=== PATIENT | male | born 1955 | race Caucasian/White ===

== ENCOUNTER 2022-01-22 16:05 | Emergency (ER) | payer MEDICARE ==
--- NOTE | 2022-01-22 16:10 | ERPHSYRPT ---
- History of Present Illness Time Seen by Provider: 01/22/22 16:09 Source: patient Exam Limitations: no limitations Physician History: This and is obese 67-year-old white male patient of Dr. Hunt who is had Covid symptoms for 2 weeks and he took a Covid test which was positive. This is an [id number] test. Patient states his symptoms have been persistent and therefore chest x-ray was performed yesterday which was consistent with COVID-19 pneumonia. His shortness of breath has not improved. Patient was seen at Dr. Hunt's office yesterday a series of blood tests were performed. Since his symptoms are not improving, patient was told to come to the emergency department for evaluation and management. Patient denies chest pain. He has no abdominal pain. He has no nausea vomiting or diarrhea. Patient states that he is allergic to prednisone and he does not know if he can take any other kind of steroids. Patient is a former smoker and has a history of COPD Timing/Duration: week(s) (2), intermittent, worse Cough Quality/Degree: mild, dry cough Possible Cause: occasional episodes Modifying Factors: Improves With: coughing, oxygen Associated Symptoms: cough, shortness of breath Allergies/Adverse Reactions: codeine Allergy (Severe, Verified 01/22/22 16:21) Tightness of Throat fentanyl Allergy (Severe, Verified 01/22/22 16:21) Tightness of Throat itching,heart tachy prednisone Allergy (Severe, Verified 01/22/22 16:21) Tightness of Throat itching metaxalone [From Skelaxin] Allergy (Intermediate, Verified 01/22/22 16:21) agitation meloxicam Allergy (Mild, Verified 01/22/22 16:21) agitation methylprednisolone Allergy (Verified 01/22/22 16:21) Tightness of Throat swelling carisoprodol Adverse Reaction (Intermediate, Verified 01/22/22 16:21) agitation gabapentin [From Neurontin] Adverse Reaction (Intermediate, Verified 01/22/22 16:21) Nausea nervous ibuprofen Adverse Reaction (Intermediate, Verified 01/22/22 16:21) cyclobenzaprine Adverse Reaction (Mild, Verified 01/22/22 16:21) Sulfa (Sulfonamide Antibiotics) Adverse Reaction (Unknown, Verified 01/22/22 16:21) states as a child,mother told him he had sores Home Medications: Lansoprazole [Prevacid] 15 mg PO DAILY 02/14/14 [History] Fluticasone Propionate [Flonase] 16 gm NS DAILY PRN 02/15/14 [History] Acetaminophen [Tylenol Extra Strength] 2 tab PO DAILY 09/07/18 [History] Albuterol 8 gm Mdi Hfa [Ventolin Hfa MDI] 2 puff IN Q4H PRN 01/22/22 [History] Hx Influenza Vaccination/Date Given: No Hx Pneumococcal Vaccination/Date Given: No Travel Risk - International Travel Have you traveled outside of the country in past 3 weeks: No - Coronavirus Screening Are you exhibiting any of the following symptoms?: Yes Symptoms: Cough: New Onset, Shortness of Breath Close contact with a COVID-19 positive Pt in past 14-21 Days: No - Review of Systems Constitutional: Weakness Eyes: No Symptoms Ears, Nose, & Throat: No Symptoms Respiratory: Cough, Dyspnea Cardiac: No Symptoms, No Chest Pain Abdominal/Gastrointestinal: No Symptoms Genitourinary Symptoms: No Symptoms Musculoskeletal: No Symptoms Skin: No Symptoms Neurological: No Symptoms Psychological: No Symptoms Endocrine: Excessive Sweating Hematologic/Lymphatic: No Symptoms Immunological/Allergic: No Symptoms All Other Systems: Reviewed and Negative - Past Medical History Pertinent Past Medical History: Yes Neurological History: No Pertinent History ENT History: No Pertinent History Cardiac History: Hypertension Respiratory History: COPD Endocrine Medical History: No Pertinent History Musculoskeletal History: Arthritis GI Medical History: GERD, Ulcer History: No Pertinent History Psycho-Social History: No Pertinent History Male Reproductive Disorders: No Pertinent History Other Medical History: Has Shortness of breath when allergies flare up. Mild COPD. Pt has seen Dr. Carranza in the past. Last appointment was over 2 years ago. Former smoker. - Past Surgical History Past Surgical History: Yes Neuro Surgical History: No Pertinent History Cardiac: No Pertinent History Respiratory: No Pertinent History Gastrointestinal: Cholecystectomy, Hernia Repair Genitourinary: No Pertinent History Musculoskeletal: Other Male Surgical History: No Pertinent History Other Surgical History: right carpal tunnel and decompression of elbox , Amanda and umbilical hernia repair , Nose surgery , skin cancer surgery - Social History Smoking Status: Former smoker Exposure to second hand smoke: Yes (Rarely) Drug Use: none - Nursing Vital Signs Nursing Vital Signs: Initial Vital Signs Temperature 97.9 F 01/22/22 16:10 Pulse Rate 88 01/22/22 16:10 Respiratory Rate 22 01/22/22 16:10 Blood Pressure 170/87 01/22/22 16:10 O2 Sat by Pulse Oximetry 92 L 01/22/22 16:10 Pain Scale Pain Intensity 0 - Physical Exam General Appearance: mild distress (To moderate), alert, obese Eye Exam: PERRL/EOMI, eyes nml inspection Ears, Nose, Throat Exam: normal ENT inspection, dry mucous membranes Neck Exam: normal inspection, non-tender, supple, full range of motion Respiratory Exam: normal breath sounds, lungs clear, airway intact, No chest tenderness, No respiratory distress Cardiovascular Exam: regular rate/rhythm, normal heart sounds, normal peripheral pulses Gastrointestinal/Abdomen Exam: soft, normal bowel sounds, No tenderness Rectal Exam: not done Back Exam: normal inspection, normal range of motion, No CVA tenderness, No vertebral tenderness Extremity Exam: normal inspection, normal range of motion, pelvis stable Neurologic Exam: alert, oriented x 3, cooperative, 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 No changes when compared to EKG performed on 02/28/2015.) Ordered Tests: Active Orders 24 hr Category Date Time Status EKG-ER Only STAT Care 01/22/22 16:10 Active IV Insertion STAT Care 01/22/22 16:10 Active Pulse Oximetry (ED) STAT Care 01/22/22 16:10 Active CHEST 1 VIEW (PORTABLE) Stat Exams 01/22/22 16:11 Completed BLOOD CULTURE Stat Lab 01/22/22 16:20 Received CBC W DIFF Stat Lab 01/22/22 16:20 Completed CMP Stat Lab 01/22/22 16:20 Completed COVID AG-BINAX NOW RAPID TEST Stat Lab 01/22/22 16:28 Completed D-DIMER QUANTITATIVE Stat Lab 01/22/22 16:20 Completed INFLUENZA A+B DMITRY Stat Lab 01/22/22 16:28 Completed Lactic Acid Stat Lab 01/22/22 16:30 Completed Estill Screen Stat Lab 01/22/22 16:20 Completed NT PRO BNP Stat Lab 01/22/22 16:20 Completed TROPONIN Q3H Lab 01/22/22 16:20 Completed TROPONIN Q3H Lab 01/22/22 19:15 Ordered TROPONIN Q3H Lab 01/22/22 22:15 Ordered TROPONIN Q3H Lab 01/23/22 01:15 Ordered TROPONIN Q3H Lab 01/23/22 04:15 Ordered Medication Summary Generic Name Dose Route Start Last Admin Trade Name Freq PRN Reason Stop Dose Admin Sodium Chloride 1,000 mls @ 50 mls/hr 01/22/22 16:15 01/22/22 16:23 Sodium Chloride 0.9% 1000 Ml IV 02/21/22 16:14 50 mls/hr .Q20H MERCEDES Administration Discontinued Medications Generic Name Dose Route Start Last Admin Trade Name Freq PRN Reason Stop Dose Admin Al Hydrox/Mg Hydrox/Simethicone Confirm 01/22/22 17:47 Mag Hydrox/Al Hydrox/Simeth 30 Ml Udcup Administered 01/22/22 17:48 Dose 30 ml .ROUTE .STK-MED ONE Lidocaine HCl Confirm 01/22/22 17:46 Lidocaine Hcl Viscous 1 Ml Administered 01/22/22 17:47 Dose 15 ml .ROUTE .STK-MED ONE Magnesium Hydroxide 45 ml 01/22/22 17:40 01/22/22 17:48 Mag Hydrx/Alum Hyd/Simeth/Lido 45 Ml Bottle PO 01/22/22 17:41 45 ml STAT ONE Administration Lab/Rad Data: Laboratory Result Diagrams 01/22/22 16:20 01/22/22 16:20 Laboratory Results 01/22/22 01/22/22 01/22/22 Range/Units 16:30 16:28 16:28 WBC (4.0-10.5) K/mm3 RBC (4.1-5.6) M/mm3 Hgb (12.5-18.0) gm/dl Hct (42-50) % MCV (78-100) fl MCH (26-32) pg MCHC (32-36) g/dl RDW (11.5-14.0) % Plt Count (150-450) K/mm3 MPV (7.5-11.0) fl Gran % (36.0-66.0) % Eos # (Auto) (0-0.5) Absolute Lymphs (auto) (1.0-4.6) Absolute Monos (auto) (0.0-1.3) Lymphocytes % (24.0-44.0) % Monocytes % (0.0-12.0) % Eosinophils % (0.00-5.0) % Basophils % (0.0-0.4) % Absolute Granulocytes (1.4-6.9) Basophils # (0-0.4) D-Dimer (215-500) ng/mL Sodium (137-145) mmol/L Potassium (3.5-5.1) mmol/L Chloride (98-107) mmol/L Carbon Dioxide (22-30) mmol/L Anion Gap (5-15) MEQ/L BUN (9-20) mg/dL Creatinine (0.66-1.25) mg/dL Estimated GFR ML/MIN Glucose (74-106) mg/dL Lactic Acid 1.0 (0.4-2.0) Calcium (8.4-10.2) mg/dL Total Bilirubin (0.2-1.3) mg/dL AST (17-59) U/L ALT (0-50) U/L Alkaline Phosphatase (38-126) U/L Troponin I (0.000-0.034) ng/mL NT-Pro-B Natriuret Pep (0-900) pg/mL Serum Total Protein (6.3-8.2) g/dL Albumin (3.5-5.0) g/dL Monoscreen (Negative) Influenza Type A Ag NEGATIVE (NEGATIVE) Influenza Type B Ag NEGATIVE (NEGATIVE) SARS-CoV-2 Ag (Rapid) NEGATIVE (NEGATIVE) Group A Strep Antibody NOT DETECTED (NEGATIVE) Slides for Path Review 01/22/22 01/22/22 01/22/22 Range/Units 16:20 16:20 16:20 WBC (4.0-10.5) K/mm3 RBC (4.1-5.6) M/mm3 Hgb (12.5-18.0) gm/dl Hct (42-50) % MCV (78-100) fl MCH (26-32) pg MCHC (32-36) g/dl RDW (11.5-14.0) % Plt Count (150-450) K/mm3 MPV (7.5-11.0) fl Gran % (36.0-66.0) % Eos # (Auto) (0-0.5) Absolute Lymphs (auto) (1.0-4.6) Absolute Monos (auto) (0.0-1.3) Lymphocytes % (24.0-44.0) % Monocytes % (0.0-12.0) % Eosinophils % (0.00-5.0) % Basophils % (0.0-0.4) % Absolute Granulocytes (1.4-6.9) Basophils # (0-0.4) D-Dimer 488 (215-500) ng/mL Sodium (137-145) mmol/L Potassium (3.5-5.1) mmol/L Chloride (98-107) mmol/L Carbon Dioxide (22-30) mmol/L Anion Gap (5-15) MEQ/L BUN (9-20) mg/dL Creatinine (0.66-1.25) mg/dL Estimated GFR ML/MIN Glucose (74-106) mg/dL Lactic Acid (0.4-2.0) Calcium (8.4-10.2) mg/dL Total Bilirubin (0.2-1.3) mg/dL AST (17-59) U/L ALT (0-50) U/L Alkaline Phosphatase (38-126) U/L Troponin I < 0.012 (0.000-0.034) ng/mL NT-Pro-B Natriuret Pep (0-900) pg/mL Serum Total Protein (6.3-8.2) g/dL Albumin (3.5-5.0) g/dL Monoscreen NEGATIVE (Negative) Influenza Type A Ag (NEGATIVE) Influenza Type B Ag (NEGATIVE) SARS-CoV-2 Ag (Rapid) (NEGATIVE) Group A Strep Antibody (NEGATIVE) Slides for Path Review 01/22/22 01/22/22 Range/Units 16:20 16:20 WBC 9.1 (4.0-10.5) K/mm3 RBC 5.34 (4.1-5.6) M/mm3 Hgb 15.7 (12.5-18.0) gm/dl Hct 47.0 (42-50) % MCV 88.0 (78-100) fl MCH 29.4 (26-32) pg MCHC 33.4 (32-36) g/dl RDW 14.3 H (11.5-14.0) % Plt Count 441 (150-450) K/mm3 MPV 9.6 (7.5-11.0) fl Gran % 49.1 (36.0-66.0) % Eos # (Auto) 0.24 (0-0.5) Absolute Lymphs (auto) 2.61 (1.0-4.6) Absolute Monos (auto) 1.76 H (0.0-1.3) Lymphocytes % 28.6 (24.0-44.0) % Monocytes % 19.3 H (0.0-12.0) % Eosinophils % 2.6 (0.00-5.0) % Basophils % 0.4 (0.0-0.4) % Absolute Granulocytes 4.48 (1.4-6.9) Basophils # 0.04 (0-0.4) D-Dimer (215-500) ng/mL Sodium 137 (137-145) mmol/L Potassium 4.3 (3.5-5.1) mmol/L Chloride 104 (98-107) mmol/L Carbon Dioxide 24 (22-30) mmol/L Anion Gap 13.1 (5-15) MEQ/L BUN 11 (9-20) mg/dL Creatinine 0.77 (0.66-1.25) mg/dL Estimated GFR > 60.0 ML/MIN Glucose 98 (74-106) mg/dL Lactic Acid (0.4-2.0) Calcium 8.8 (8.4-10.2) mg/dL Total Bilirubin 1.00 (0.2-1.3) mg/dL AST 38 (17-59) U/L ALT 58 H (0-50) U/L Alkaline Phosphatase 116 (38-126) U/L Troponin I (0.000-0.034) ng/mL NT-Pro-B Natriuret Pep 44.7 (0-900) pg/mL Serum Total Protein 6.5 (6.3-8.2) g/dL Albumin 3.6 (3.5-5.0) g/dL Monoscreen (Negative) Influenza Type A Ag (NEGATIVE) Influenza Type B Ag (NEGATIVE) SARS-CoV-2 Ag (Rapid) (NEGATIVE) Group A Strep Antibody (NEGATIVE) Slides for Path Review YES - Progress Progress: improved Air Movement: fair Progress Note: 01/22/22 18:25 Chest x-ray shows picture consistent with Covid 19 infection. Is not changed from yesterday's chest x-ray. I did speak with Dr. Hunt, the patient's primary care physician. Dr. Hunt I agree that the patient can come in the hospital and receive remdesivir and Lovenox and respiratory treatments and monitoring. However, the patient states that he does not want to come in the hospital. He will sign a refusal of care and treatment. Patient does not recall which steroids he is allergic to and which ones he can take. He will follow up with Dr. Hunt in his office tomorrow to make arrange for follow-up appointment. Patient was told to follow- up in the emergency room if symptoms worsen. Counseled pt/family regarding: lab results, diagnosis, rad results - Departure Departure Disposition: Home Clinical Impression: Shortness of breath, Pneumonia due to COVID-19 virus Condition: Fair Critical Care Time: No Referrals: RANDY HUNT [Primary Care Provider] - Follow up/PCP as directed Additional Instructions: Take your medication as prescribed. Monitor your pulse oximeter. If you become more short of breath return to the emergency department. Call Dr. Hunt's office tomorrow to make arrangements for follow-up appointment.
[2022-01-22] MEDS ORDERED: Sodium Chloride 0.9% 1000 ML 1,000 ML IV SCH (16:15)
[2022-01-22] MEDS ORDERED: Sodium Chloride 0.9% 1000 ML 1,000 ML ONE (16:21)
[2022-01-22 16:45] LABS: Absolute Neutrophil Ct (ANC) 4.48 (1.4-6.9); Basophil (Absolute #) 0.04 (0-0.4); Eosinophil % 2.6 % (0.00-5.0); Eosinophil (Absolute #) 0.24 (0-0.5); Hemoglobin 15.7 gm/dl (12.5-18.0); Lymphocyte (Absolute #) 2.61 (1.0-4.6); Lymphocytes % 28.6 % (24.0-44.0); Mean Corpuscular Hemoglobin 29.4 pg (26-32); Mean Corpuscular Hgb Concent. 33.4 g/dl (32-36); Mean Platelet Volume 9.6 fl (7.5-11.0); Monocyte (Absolute #) 1.76 (0.0-1.3); Monocytes % 19.3 % (0.0-12.0); Neutrophil % 49.1 % (36.0-66.0); Platelet Count 441 K/mm3 (150-450); Red Blood Count 5.34 M/mm3 (4.1-5.6); Red Cell Distribution Width 14.3 % (11.5-14.0); White Blood Count 9.1 K/mm3 (4.0-10.5)
--- NOTE | 2022-01-22 16:54 | XRAY ---
Indication: Dyspnea. Positive Covid 19. Comparison: One day earlier. Portable apical lordotic chest unchanged again demonstrating mild diffuse bilateral peripheral hazy interstitial alveolar opacities without consolidation/large effusion. Heart not enlarged. No new cardiopulmonary abnormalities.
[2022-01-22 17:13] LABS: INFLUENZA A NEGATIVE (NEGATIVE); INFLUENZA B NEGATIVE (NEGATIVE)
[2022-01-22 17:15] LABS: ALBUMIN 3.6 g/dL (3.5-5.0); ALKALINE PHOSPHATASE 116 U/L (38-126); ANION GAP 13.1 MEQ/L (5-15); BLOOD UREA NITROGEN 11 mg/dL (9-20); CHLORIDE 104 mmol/L (98-107); Calcium 8.8 mg/dL (8.4-10.2); Carbon Dioxide 24 mmol/L (22-30); Creatinine 1 0.77 mg/dL (0.66-1.25); EST GLOMERULAR FILTRATION RATE > 60.0 ML/MIN; Glucose 98 mg/dL (74-106); NT PRO BNP 44.7 pg/mL (0-900); Potassium 4.3 mmol/L (3.5-5.1); SGOT/AST 38 U/L (17-59); SGPT/ALT 58 U/L (0-50); SODIUM 137 mmol/L (137-145); Total Protein 6.5 g/dL (6.3-8.2)
[2022-01-22 17:15] LABS: COVID AG -BINAX NOW RAPID TEST NEGATIVE (NEGATIVE)
[2022-01-22 17:22] LABS: Slide Review 1 YES
[2022-01-22 17:35] VITALS: BP 137/82; PULSE 92; O2SAT 94
[2022-01-22] MEDS ORDERED: GI COCKTAIL 45 ML (Maalox/Lidocaine) PO ONE (17:40)
[2022-01-22] MEDS ORDERED: XYLOCAINE HCl Viscous ONE (17:46)
[2022-01-22] MEDS ORDERED: MAALOX ES 30 ML UNIT DOSE ONE (17:47)
== END 2022-01-22 18:32 | disposition home or self-care (01) ==
LOC: ED 16:05
DX: U07.1 COVID-19 (principal); J12.82 Pneumonia due to coronavirus disease 2019; R06.02 Shortness of breath; R05.9 Cough, unspecified; J44.9 Chronic obstructive pulmonary disease, unspecified; K21.9 Gastro-esophageal reflux disease without esophagitis; Z79.899 Other long term (current) drug therapy
CPT/HCPCS: 36000; 36415; 71045; 80053; 83605; 83880; 84484; 85025; 85379; 86308; 87040; 87400; 87651; 93005; 94760; 99000; 99284; A9270-GY